=== PATIENT | female | born 1935 | race Caucasian/White ===

== ENCOUNTER 2021-02-11 11:06 | Outpatient (REF) | payer MEDICARE, SELFPAY ==
[2021-02-11 13:56] LABS: Free T4 (Free Thyroxine) 0.92 ng/dL (0.71-1.85); Thyroid Stimulating Hormone 0.62 uIU/mL (0.32-4.0)
== END 2021-02-11 11:07 | disposition home or self-care (01) ==
LOC: HO.MANLDS 11:06
PROVIDERS: PCP Physician Assistant; Visit Provider Physician Assistant
DX: E03.9 Hypothyroidism, unspecified (principal)
CPT/HCPCS: 36415; 84439; 84443